=== PATIENT | female | born 1965 | race Two or more races ===

== ENCOUNTER 2020-09-09 11:07 | Emergency (ER) | payer OTHER ==
[2020-09-09 11:17] VITALS: BMI 29.2
[2020-09-09] MEDS ORDERED: ONDANSETRON 4 MG/2 ML VIAL IVPUSH ONE (12:48)
[2020-09-09 12:56] LABS: BASO % 0.3 % (0-2.0); EOS % 0.4 % (0-4.5); HEMATOCRIT 42.7 % (32.4-45.2); HEMOGLOBIN 14.3 GM/dL (10.7-15.3); LYMPH % 9.9 % (8-40); MCH 33.1 pg (25.7-33.7); MCHC 33.5 g/dl (32.0-36.0); MEAN CELL VOLUME 98.8 fl (80-96); MEAN PLT VOLUME 8.4 fl (7.5-11.1); MONO % 5.6 % (3.8-10.2); NEUT % 83.8 % (42.8-82.8); PLATELET COUNT 264 K/MM3 (134-434); RBC 4.32 M/mm3 (3.60-5.2); RDW 13.2 % (11.6-15.6); WHITE BLOOD COUNT 11.2 K/mm3 (4.0-10.0)
[2020-09-09 13:06] LABS: INR 0.99 (0.83-1.09); PROTHROMBIN TIME (PATIENT) 12.2 SEC (9.7-13.0)
[2020-09-09 13:20] LABS: ALBUMIN 3.8 g/dl (3.4-5.0); BLOOD UREA NITROGEN 9.9 mg/dL (7-18); CALCIUM 9.2 mg/dL (8.5-10.1)
[2020-09-09] MEDS ORDERED: ONDANSETRON 4 MG/2 ML VIAL ONE (13:22)
[2020-09-09 13:23] LABS: CREATININE 0.6 mg/dL (0.55-1.3)
[2020-09-09 13:25] LABS: BILIRUBIN,TOTAL 0.4 mg/dL (0.2-1); TOT PROT 7.7 g/dl (6.4-8.2)
[2020-09-09 16:39] VITALS: BP 135/76; PULSE 88; TEMP 97.8
== END 2020-09-09 15:48 | disposition home or self-care (01) ==
LOC: JER 11:07
PROC: 3E033NZ Introduction of Analgesics, Hypnotics, Sedatives into Peripheral Vein, Percutaneous Approach (ICD-10-PCS; principal; 2020-09-09)
DX: R16.0 Hepatomegaly, not elsewhere classified (principal)
CPT/HCPCS: 36415; 76705-TC; 80053; 83690; 85025; 85610; 86850; 86900; 86901; 99284-25

== ENCOUNTER 2023-05-10 06:09 | Emergency (ER) | payer OTHER ==
[2023-05-10 06:15] VITALS: BP 150/90; TEMP 99.1; BMI 27.4
[2023-05-10] MEDS ORDERED: ONDANSETRON 4 MG/2 ML VIAL IVPUSH ONE (08:02)
[2023-05-10] MEDS ORDERED: FAMOTIDINE 20 MG/50 ML IVPB 20 MG/50 ML MG IVPB ONE ×2 (08:02→08:20)
[2023-05-10] MEDS ORDERED: ACETAMINOPHEN 1000 MG/100 ML BAG IVPB ONE (08:02)
[2023-05-10] MEDS ORDERED: SODIUM CHLORIDE 0.9% 500 ML INFUS.BAG IV ONE ×2 (08:02→10:01)
[2023-05-10] MEDS ORDERED: ONDANSETRON 4 MG/2 ML VIAL ONE (08:20)
[2023-05-10] MEDS ORDERED: ACETAMINOPHEN INJECTION 100 ML IVPB ONE (08:20)
[2023-05-10 09:00] LABS: HEMOGLOBIN 14.4 GM/dL (10.7-15.3); MCH 32.7 pg (25.7-33.7); MCHC 33.4 g/dl (32.0-36.0); MEAN CELL VOLUME 97.7 fl (80-96); MEAN PLT VOLUME 8.3 fl (7.5-11.1); PLATELET COUNT 220 10^3/uL (134-434); RDW 13.3 % (11.6-15.6); WHITE BLOOD COUNT 13.5 K/mm3 (4.0-10.0)
[2023-05-10 09:02] LABS: URINE APPEARANCE CLEAR; URINE BILIRUBIN NEGATIVE (NEGATIVE); URINE COLOR YELLOW; URINE GLUCOSE (UA) NEGATIVE (NEGATIVE); URINE KETONE NEGATIVE (NEGATIVE); URINE LEUK ESTERASE NEGATIVE (NEGATIVE); URINE NITRITE NEGATIVE (NEGATIVE); URINE PROTEIN NEGATIVE (NEGATIVE); URINE UROBILINOGEN 0.2 mg/dL (0.2-1.0)
[2023-05-10 09:17] LABS: POTASSIUM 3.8 mmol/L (3.5-5.1)
[2023-05-10 09:19] LABS: CALCIUM 8.9 mg/dL (8.5-10.1)
[2023-05-10 09:20] LABS: ALBUMIN 3.7 g/dl (3.4-5.0); BLOOD UREA NITROGEN 12.5 mg/dL (7-18); MAGNESIUM 2.2 mg/dL (1.8-2.4)
[2023-05-10 09:22] LABS: CREATININE 0.6 mg/dL (0.55-1.3)
[2023-05-10 09:24] LABS: BILIRUBIN,TOTAL 0.6 mg/dL (0.2-1); TOT PROT 7.7 g/dl (6.4-8.2)
[2023-05-10] MEDS ORDERED: MAG HYDROX/AL HYDROX/SIMETH -MYLANTA- ORAL SUSPENSION PO ONE (11:16)
[2023-05-10] MEDS ORDERED: SUCRALFATE 1 GM TABLET (FP) PO ONE (11:16)
[2023-05-10 12:00] LABS: ANISOCYTOSIS 3+; MACROCYTOSIS 1+
[2023-05-10] MEDS ORDERED: MAG HYDROX/AL HYDROX/SIMETH 30 ML UNIT-DOSE CUP ONE (12:22)
[2023-05-10] MEDS ORDERED: SUCRALFATE 1 GM TABLET (FP) ONE (12:23)
[2023-05-10 13:04] VITALS: PULSE 97; RESP 14
== END 2023-05-10 13:20 | disposition home or self-care (01) ==
LOC: JER 06:09
PROC: 3E033GC Introduction of Other Therapeutic Substance into Peripheral Vein, Percutaneous Approach (ICD-10-PCS; principal; 2023-05-10)
PROC: 3E033NZ Introduction of Analgesics, Hypnotics, Sedatives into Peripheral Vein, Percutaneous Approach (ICD-10-PCS; 2023-05-10)
PROC: 3E033GC Introduction of Other Therapeutic Substance into Peripheral Vein, Percutaneous Approach (ICD-10-PCS; 2023-05-10)
PROC: 3E033GC Introduction of Other Therapeutic Substance into Peripheral Vein, Percutaneous Approach (ICD-10-PCS; 2023-05-10)
DX: R11.2 Nausea with vomiting, unspecified (principal); R51.9 Headache, unspecified; R10.9 Unspecified abdominal pain; R19.7 Diarrhea, unspecified; R53.83 Other fatigue; M79.10 Myalgia, unspecified site; R50.9 Fever, unspecified; K52.9 Noninfective gastroenteritis and colitis, unspecified; Z20.822 Contact with and (suspected) exposure to COVID-19
CPT/HCPCS: 36415; 71046-TC-FY; 74177-TC; 80053; 81003; 83690; 83735; 84484; 85025; 87086; 87635; 93005; 93010; 99285-25

== ENCOUNTER 2024-05-21 06:16 | Emergency (ER) | payer OTHER ==
[2024-05-21 06:30] VITALS: BP 174/79; PULSE 62; RESP 20; TEMP 97.7; BMI 31.8
[2024-05-21] MEDS ORDERED: ACETAMINOPHEN 500 MG TABLET (FP) ONE (08:03)
[2024-05-21] MEDS: ACETAMINOPHEN 500 MG TABLET (FP) PO ONE (08:06)
== END 2024-05-21 09:53 | disposition home or self-care (01) ==
LOC: JER 06:16
DX: M25.571 Pain in right ankle and joints of right foot (principal)
CPT/HCPCS: 73610-TC-RT-FY; 73630-TC-RT-FY; 99283-25